=== PATIENT | male | born 1960 | race Two or more races ===

== ENCOUNTER 2025-04-20 08:12 | Outpatient (CLI) | payer MEDICARE, MEDICAID ==
[2025-04-20 08:33] LABS: Urine Protein, UAD Negative (Negative)
[2025-04-20 08:48] LABS: Hematocrit 39.3 % (41.0-53.0); Hemoglobin 13.3 g/dL (13.5-17.5); Mean Corpuscular Hemoglobin 30.3 pg (28.0-32.0); Mean Corpuscular Volume 89.5 fL (80.0-100.0); Nucleated Red Blood Cells % 0.1 %
[2025-04-20 09:43] LABS: Alanine Aminotransferase 18 U/L (7-40); Albumin 4.3 g/dL (3.2-4.8); Alkaline Phosphatase 57 U/L (46-116); Anion Gap 8 (5-15); BUN/Creatinine Ratio 10.0 (10.0-20.0); Blood Urea Nitrogen 9 mg/dL (9-23); Calcium 9.3 mg/dL (8.7-10.4); Carbon Dioxide 27 mmol/L (20-31); Magnesium 2.0 mg/dL (1.6-2.6); Total Protein 7.2 g/dL (5.7-8.2); Triglycerides 89 mg/dL (< 150)
[2025-04-20 09:44] LABS: Bilirubin, Total 0.4 mg/dL (0.2-1.0); Cholesterol 145 mg/dL (< 200)
[2025-04-20 09:49] LABS: HDL Cholesterol 49 mg/dL (40-59)
[2025-04-20 09:52] LABS: Chloride 101 mmol/L (98-107); Glucose 110 mg/dL (74-106); Potassium 3.8 mmol/L (3.5-5.1); Sodium 136 mmol/L (136-145)
[2025-04-20 10:34] LABS: Iron 70.0 ug/dL (65-175)
[2025-04-20 10:37] LABS: Total Iron Binding Capacity 332.0 ug/dL (250-425)
[2025-04-20 10:38] LABS: Prostate Specific Antigen 0.71 ng/mL (0.0-4.0)
[2025-04-20 11:08] LABS: Uric Acid 6.9 mg/dL (3.7-9.2)
== END 2025-04-20 17:00 | disposition home or self-care (01) ==
LOC: LAB 08:12
PROVIDERS: ATTEND Family Medicine
DX: E78.2 Mixed hyperlipidemia (principal); K21.9 Gastro-esophageal reflux disease without esophagitis; Z76.89 Persons encountering health services in other specified circumstances
CPT/HCPCS: 36415; 80053; 80061; 81001; 82306; 82607; 83036; 83540; 83550; 83735; 84153; 84443; 84550; 85025; 87086

== ENCOUNTER → 2025-05-18 | Outpatient (CLI) | payer MEDICAID ==
[2025-05-18 10:35] LABS: Triglycerides 151.0 mg/dL (< 150)
[2025-05-18 11:23] LABS: Uric Acid 6.6 mg/dL (3.7-9.2)
[2025-05-18 11:25] LABS: Free T3 3.58 pg/mL (2.3-4.2)
[2025-05-18 11:27] LABS: Free T4 (Free Thyroxine) 1.24 ng/dL (0.89-1.76)
== END | disposition home or self-care (01) ==
LOC: LAB 09:44
PROVIDERS: ATTEND Family Medicine
DX: R79.89 Other specified abnormal findings of blood chemistry (principal); M11.20 Other chondrocalcinosis, unspecified site; M19.90 Unspecified osteoarthritis, unspecified site
CPT/HCPCS: 36415; 80198; 84403; 84439; 84443; 84478; 84480; 84481; 84550; 85652; 86141